=== PATIENT | female | born 1960 | race Caucasian/White ===

== ENCOUNTER 2018-08-07 12:32 | Emergency (ER) | payer SELFPAY ==
[~2018-08-07] VITALS: Ht 152.4 cm; Wt 59.0 kg
[2018-08-07] MEDS ORDERED: MORPHINE SULFATE 4 MG/ML CPJ (NOT FOR IM USE) IV STA (13:06)
[2018-08-07] MEDS ORDERED: KETOROLAC 30MG/ML VIAL IV STA (13:06)
[2018-08-07 17:12] VITALS: BP 124/73
== END 2018-08-07 17:13 | disposition home or self-care (01) ==
LOC: ER 14:38
DX: M79.18 Myalgia, other site (principal); E78.00 Pure hypercholesterolemia, unspecified; Z98.890 Other specified postprocedural states
CPT/HCPCS: 71101; 96374; 96375; 99283; J1885; J2270; Z7610